=== PATIENT | male | born 1995 | race Caucasian/White ===

== ENCOUNTER 2017-05-23 16:10 | Emergency (ER) | payer OTHER ==
[2017-05-23 16:18] VITALS: BP 122/74; PULSE 77; RESP 18; TEMP 97.9
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
[2017-05-24 01:42] LABS: Hepatitis A Antibody IgM Non-Reactive (Non-Reactive)
[2017-05-24 01:43] LABS: Hepatitis B Core IgM Non-Reactive (Non-Reactive)
[2017-05-24 03:43] LABS: HIV AB P24 Non-Reactive (Non-Reactive); HIV P24 AG Non-Reactive (Non-Reactive)
== END 2017-05-23 17:00 | disposition home or self-care (01) ==
LOC: EC 16:10
DX: Z77.21 Contact with and (suspected) exposure to potentially hazardous body fluids (principal)
CPT/HCPCS: 36415; 80074; 87390; 99284